=== PATIENT | female | born 1965 | race Caucasian/White ===

== ENCOUNTER 2018-04-15 16:17 | Emergency (ER) | payer SELFPAY ==
[~2018-04-15] VITALS: Ht 160 cm; Wt 75.7 kg
[2018-04-15] MEDS ORDERED: IOHEXOL 350 MG/ML 100 ML (OMNIPAQUE 350) VIAL IV ONE (17:00)
[2018-04-15] MEDS ORDERED: NS 100 ML (IVPB) BAG IV ONE (17:00)
[2018-04-15] MEDS ORDERED: fentaNYL INJECTION 100 MCG/2 ML AMP IVP ONE (17:15)
[2018-04-15 17:26] LABS: BASOPHILS % (AUTO) 0 % (0-10); EOSINOPHILS # (AUTO) 0.1 10^3/uL (0.0-0.3); EOSINOPHILS % (AUTO) 2 % (0-10); HEMATOCRIT 39 % (35-52); HEMOGLOBIN 13.3 G/DL (11.5-16.0); LYMPHOCYTES # (AUTO) 2.8 X 10^3 (1.0-4.0); LYMPHOCYTES % (AUTO) 51 % (12-44); MEAN CORPUSCULAR HEMOGLOBIN 30 PG (25-34); MEAN CORPUSCULAR HGB CONC 34 G/DL (32-36); MEAN CORPUSCULAR VOLUME 87 FL (80-99); MEAN PLATELET VOLUME 10.7 FL (7.4-10.4); MONOCYTES # (AUTO) 0.3 X 10^3 (0.0-1.0); MONOCYTES % (AUTO) 6 % (0-12); NEUTROPHILS # (AUTO) 2.3 X 10^3 (1.8-7.8); NEUTROPHILS % (AUTO) 41 % (42-75); PLATELET COUNT 298 10^3/uL (130-400); RED BLOOD COUNT 4.49 10^6/uL (4.35-5.85); RED CELL DISTRIBUTION WIDTH 12.8 % (10.0-14.5); WHITE BLOOD COUNT 5.4 10^3/uL (4.3-11.0)
[2018-04-15 17:44] LABS: ALANINE AMINOTRANSFERASE 22 U/L (0-55); ALBUMIN 4.1 GM/DL (3.2-4.5); ALKALINE PHOSPHATASE 72 U/L (40-136); BILIRUBIN,TOTAL 0.7 MG/DL (0.1-1.0); BUN/CREATININE RATIO 15; CALCIUM 9.5 MG/DL (8.5-10.1); CARBON DIOXIDE 25 MMOL/L (21-32); CHLORIDE 106 MMOL/L (98-107); CREATININE SERUM 0.68 MG/DL (0.60-1.30); GFR ESTIMATED > 60; GLUCOSE 149 MG/DL (70-105); POTASSIUM 4.1 MMOL/L (3.6-5.0); SODIUM 141 MMOL/L (135-145); TOTAL PROTEIN 7.6 GM/DL (6.4-8.2)
--- NOTE | 2018-04-15 18:22 | Diagnostic Imaging Report ---
PROCEDURE: CT head without contrast. TECHNIQUE: Multiple contiguous axial images were obtained through the brain without the use of intravenous contrast. INDICATION: Stroke. Poor historian. Altered mental status. FINDINGS: Noncontrasted images show no evidence of intracranial hemorrhage. The ventricles and cortical gyral pattern are normal. There is no extra-axial fluid collection. Basal cisterns are clear. Mastoid air cells are well aerated and clear. Paranasal sinuses are clear where visualized. There is no calvarial fracture. IMPRESSION: Negative CT head without contrast. Dictated by: Dictated on workstation # [id number]
--- NOTE | 2018-04-15 18:49 | Diagnostic Imaging Report ---
PROCEDURE: CT neck soft tissue with contrast. TECHNIQUE: Multiple contiguous axial images were obtained through the neck after the administration of contrast. INDICATION: Posterior neck pain. FINDINGS: The area of interest was not localized. There are several scattered non-pathologically enlarged bilateral cervical lymph nodes present. These include some posterior lymph nodes. Definitive pathologically enlarged lymphadenopathy does not appear to be present. The nasopharynx is not completely included. Oropharynx is unremarkable. Tonsillar fossa is slightly prominent but otherwise unremarkable. Valleculae, vocal cords, and subglottic airway are unremarkable. Thyroid gland, bilateral submandibular and parotid glands appearing unremarkable. Parapharyngeal fat planes are preserved. Carotid sheath contents are unremarkable. Cervical spinal alignment is appearing relatively anatomic. No definitive abnormal posterior soft tissue mass lesion. Lung apices are unremarkable. Visualized paranasal sinuses overall are clear. Patient is edentulous. IMPRESSION: Prominent in number scattered bilateral cervical lymph nodes. Otherwise, relatively unremarkable CT examination of the soft tissue neck. Dictated by: Dictated on workstation # [id number]
[2018-04-15 19:28] VITALS: BP 195/74
[2018-04-15] MEDS ORDERED: predniSONE 20 MG TAB PO ONE (20:45)
[2018-04-15] MEDS ORDERED: ACYCLOVIR 400 MG TABLET (ZOVIRAX) PO ONE (20:45)
[2018-04-15] MEDS ORDERED: AMOXICILLIN 500 MG (POLYMOX) CAP PO ONE (20:45)
--- NOTE | 2018-04-15 20:46 | ED Neurological Problem ---
General Chief Complaint: Facial Problems Stated Complaint: POSS STROKE Nursing Triage Note: PT ENGLISH SPEAKING, INTERPRETOR LINE USED, PT CO OF R SIDED FACIAL PAIN 8/ 10AND R SIDE OF MOUTH DRAWING, STATES STARTED SUNDAY UPON AWAKENING AND IS WORSENING. PT CO OF CHAMBERS. PT HAS 2 DAUGHTERS W HER AT THIS X. NEITHER SPEAK LATVIAN Nursing Sepsis Screen: No Definite Risk Source: patient, java lead architect Exam Limitations: language barrier History of Present Illness Date Seen by Provider: Apr 15, 2018 Time Seen by Provider: 16:35 Initial Comments This 53-year-old woman presents to the emergency room with complaints of right facial pain extending from the mastoid area around toward the eye and jaw. She also has right-sided facial weakness. The patient is Irish-speaking and the language line was used for java lead architect services. She denies any weakness or or paresthesia of any other part of her body. Her pain is fairly intense rated as 8/10. She is notably hypertensive. She denies any history of hypertension and it is presumed her hypertension is related to pain. She denies any other recent illness. Symptoms seem to affect the muscles of the eyelids and the forehead. She denies any vision change. Allergies and Home Medications Allergies Coded Allergies: No Allergy Information Available (Unverified , 04/15/18) Home Medications Acyclovir 400 Mg Tablet, 400 MG PO UD Prescribed by: DEBORAH LEONG on 04/15/182052 Amoxicillin 500 Mg Tablet, 1,000 MG PO BID Prescribed by: DEBORAH LEONG on 04/15/182052 Prednisone 20 Mg Tab, 60 MG PO DAILY Prescribed by: DEBORAH LEONG on 04/15/182052 Patient Home Medication List Home Medication List Reviewed: Yes Review of Systems Constitutional: no symptoms reported Eyes: See HPI Ears, Nose, Mouth, Throat: see HPI Respiratory: no symptoms reported Cardiovascular: no symptoms reported Gastrointestinal: no symptoms reported Genitourinary: no symptoms reported : No Musculoskeletal: no symptoms reported Skin: no symptoms reported Psychiatric/Neurological: See HPI Endocrine: No Symptoms Reported Hematologic/Lymphatic: No Symptoms Reported Past Nobugkq-Qeybnc-Iqgbex Hx Past Med/Social Hx: Reviewed Nursing Past Med/Soc Hx Patient Social History Alcohol Use: Denies Use Recreational Drug Use: No Smoking Status: Never a Smoker Recent Foreign Travel: No Contact w/Someone Who Travel: No Recent Infectious Disease Expo: No Recent Hopitalizations: No Physical Abuse: No Sexual Abuse: No Seasonal Allergies Seasonal Allergies: No Past Medical History Surgeries: No Respiratory: No Cardiac: No Neurological: No : No Genitourinary: No Gastrointestinal: No Musculoskeletal: No Endocrine: No HEENT: No Cancer: No Psychosocial: No Nursing Suicide Risk Score: 0 Integumentary: No Blood Disorders: No Physical Exam Vital Signs Vital Signs - First Documented 04/15/18 16:20 Temp 97.5 Pulse 74 Resp 16 B/P (MAP) 195/74 (114) Pulse Ox 99 Capillary Refill : Less Than 3 Seconds General Appearance: WD/WN, no apparent distress HEENT: PERRL/EOMI, other (there is right sided facial weakness and droop. The right forehead and eyelids are also affected. There is cerumen impaction in both ears, more extensively on the right. Mastoid on the right is mildly tender.) Neck: supple, normal inspection, tender lateral (in the area of the anterior cervical nodes on the right) Respiratory: lungs clear, normal breath sounds, no respiratory distress, no accessory muscle use Cardiovascular: regular rate, rhythm, no edema, no murmur Gastrointestinal: normal bowel sounds, non tender, soft Extremities: normal inspection, no pedal edema Neurologic/Psychiatric: no motor/sensory deficits, alert, normal mood/affect, oriented x 3, facial droop Crainal Nerves: normal hearing, normal speech, PERRL, facial droop (right side) , facial weakness (right side), other (weakness affects the mouth, eye, and forehead on the right) Coordination/Gait: normal finger to nose, normal gait Motor/Sensory: no motor deficit, no sensory deficit Skin: normal color, warm/dry Progress/Results/Core Measures Results/Orders Lab Results Laboratory Tests Test 04/15/18 17:22 Range/Units White Blood Count 5.4 4.3-11.0 10^3/uL Red Blood Count 4.49 4.35-5.85 10^6/uL Hemoglobin 13.3 11.5-16.0 G/DL Hematocrit 39 35-52 % Mean Corpuscular Volume 87 80-99 FL Mean Corpuscular Hemoglobin 30 25-34 PG Mean Corpuscular Hemoglobin Concent 34 32-36 G/DL Red Cell Distribution Width 12.8 10.0-14.5 % Platelet Count 298 130-400 10^3/uL Mean Platelet Volume 10.7 H 7.4-10.4 FL Neutrophils (%) (Auto) 41 L 42-75 % Lymphocytes (%) (Auto) 51 H 12-44 % Monocytes (%) (Auto) 6 0-12 % Eosinophils (%) (Auto) 2 0-10 % Basophils (%) (Auto) 0 0-10 % Neutrophils # (Auto) 2.3 1.8-7.8 X 10^3 Lymphocytes # (Auto) 2.8 1.0-4.0 X 10^3 Monocytes # (Auto) 0.3 0.0-1.0 X 10^3 Eosinophils # (Auto) 0.1 0.0-0.3 10^3/uL Basophils # (Auto) 0.0 0.0-0.1 10^3/uL Sodium Level 141 135-145 MMOL/L Potassium Level 4.1 3.6-5.0 MMOL/L Chloride Level 106 98-107 MMOL/L Carbon Dioxide Level 25 21-32 MMOL/L Anion Gap 10 5-14 MMOL/L Blood Urea Nitrogen 10 7-18 MG/DL Creatinine 0.68 0.60-1.30 MG/DL Estimat Glomerular Filtration Rate > 60 BUN/Creatinine Ratio 15 Glucose Level 149 H 70-105 MG/DL Calcium Level 9.5 8.5-10.1 MG/DL Total Bilirubin 0.7 0.1-1.0 MG/DL Aspartate Amino Transf (AST/SGOT) 21 5-34 U/L Alanine Aminotransferase (ALT/SGPT) 22 0-55 U/L Alkaline Phosphatase 72 40-136 U/L Total Protein 7.6 6.4-8.2 GM/DL Albumin 4.1 3.2-4.5 GM/DL TSH [place] Testing 4.80 0.35-4.94 UIU/ML My Orders Orders - DEBORAH ZAMORA MD Cbc With Automated Diff (04/15/18 16:47) Comprehensive Metabolic Panel (04/15/18 16:47) Thyroid Analyzer (04/15/18 16:47) Saline Lock/Iv-Start (04/15/18 16:47) Monitor-Rhythm Ecg Trace Only (04/15/18 16:47) Ct Head Wo (04/15/18 16:47) Ct Neck (Soft Tissue) W (04/15/18 16:47) Iohexol Injection (Omnipaque 350 Mg/Ml 1 (04/15/18 17:00) Ns (Ivpb) (Sodium Chloride 0.9% Ivpb Bag (04/15/18 17:00) Fentanyl Injection (Sublimaze Injection (04/15/18 17:15) Prednisone Tablet (Deltasone Tablet) (04/15/18 20:45) Acyclovir Capsule/Tablet (Zovirax Caps (04/15/18 20:45) Amoxicillin Capsule (Polymox Capsule) (04/15/18 20:45) Medications Given in ED Current Medications Medications Dose Ordered Sig/[place] Route Start Time Stop Time Status Last Admin Dose Admin Acyclovir 400 mg ONCE ONCE PO 04/15/18 20:45 04/15/18 20:46 DC 04/15/18 21:28 400 MG Amoxicillin 1,000 mg ONCE ONCE PO 04/15/18 20:45 04/15/18 20:46 DC 04/15/18 21:28 1,000 MG Prednisone 60 mg ONCE ONCE PO 04/15/18 20:45 04/15/18 20:46 DC 04/15/18 21:28 60 MG Vital Signs/I&O 04/15/18 04/15/18 16:20 19:28 Temp 97.5 97.5 Pulse 74 74 Resp 16 16 B/P (MAP) 195/74 (114) 195/74 (114) Pulse Ox 99 99 Blood Pressure Mean: 114 Progress Progress Note : Progress Note Patient's presentation seemed consistent with Kline's palsy given the history and exam. However, patient had unusual pain for Kline's palsy. For this reason further workup was pursued. CT of the head and neck was obtained. Labs were pursued. Patient had a lymphocytic predominance on her WBC suggesting viral illness. However, tympanic membranes could not be seen due to cerumen impaction. Therefore amoxicillin was given in addition to treatment of the Kline 's palsy with prednisone and acyclovir. Patient was treated with fentanyl for pain. This improved her blood pressure is well. Extensive amount of time was spent with this patient in conversation via the language line. At least 30 minutes was spent with the patient obtaining history, providing consultation, and reviewing discharge instructions. Diagnostic Imaging Diagonstic Imaging: CT Plain Films/CT/US/NM/MRI: other Comments CT soft tissues neck viewed by me and report reviewed. See report below: NAME: JESSI PEREZ MED REC#: [id number] PT STATUS: REG ER : 1965 PHYSICIAN: DEBORAH ZAMORA MD ADMIT DATE: 04/15/18/ER Signed Date of Exam: 04/15/18 CT NECK (SOFT TISSUE) W PROCEDURE: CT neck soft tissue with contrast. TECHNIQUE: Multiple contiguous axial images were obtained through the neck after the administration of contrast. INDICATION: Posterior neck pain. FINDINGS: The area of interest was not localized. There are several scattered non-pathologically enlarged bilateral cervical lymph nodes present. These include some posterior lymph nodes. Definitive pathologically enlarged lymphadenopathy does not appear to be present. The nasopharynx is not completely included. Oropharynx is unremarkable. Tonsillar fossa is slightly prominent but otherwise unremarkable. Valleculae, vocal cords, and subglottic airway are unremarkable. Thyroid gland, bilateral submandibular and parotid glands appearing unremarkable. Parapharyngeal fat planes are preserved. Carotid sheath contents are unremarkable. Cervical spinal alignment is appearing relatively anatomic. No definitive abnormal posterior soft tissue mass lesion. Lung apices are unremarkable. Visualized paranasal sinuses overall are clear. Patient is edentulous. IMPRESSION: Prominent in number scattered bilateral cervical lymph nodes. Otherwise, relatively unremarkable CT examination of the soft tissue neck. Dictated by: Dictated on workstation # [id number] Dict: 04/15/188 Trans: 04/15/181929 Interpreted by: ARA MCCANN DO Electronically signed by: ARA MCCANN DO 04/15/181929 Diagonstic Imaging: CT Plain Films/CT/US/NM/MRI: head Comments CT head viewed by me and report reviewed. See report below: NAME: JESSI PEREZ MED REC#: [id number] PT STATUS: REG ER : 1965 PHYSICIAN: DEBORAH ZAMORA MD ADMIT DATE: 04/15/18/ER Signed Date of Exam: 04/15/18 CT HEAD WO PROCEDURE: CT head without contrast. TECHNIQUE: Multiple contiguous axial images were obtained through the brain without the use of intravenous contrast. INDICATION: Stroke. Poor historian. Altered mental status. FINDINGS: Noncontrasted images show no evidence of intracranial hemorrhage. The ventricles and cortical gyral pattern are normal. There is no extra-axial fluid collection. Basal cisterns are clear. Mastoid air cells are well aerated and clear. Paranasal sinuses are clear where visualized. There is no calvarial fracture. IMPRESSION: Negative CT head without contrast. Dictated by: Dictated on workstation # [id number] Dict: 04/15/187 Trans: 04/15/182202 Interpreted by: JIN BASSETT MD Electronically signed by: JIN BASSETT MD 04/15/182202 Departure Impression Primary Impression: Kline's palsy Additional Impressions: Right sided facial pain Cerumen impaction Qualified Codes: H61.23 - Impacted cerumen, bilateral Disposition: 01 HOME, SELF-CARE Condition: Improved Departure-Patient Inst. Decision time for Depature: 20:00 Patient Instructions: Kline's Palsy, Ear Wax Impaction Add. Discharge Instructions: Complete your medications as prescribed. Take with food or milk to avoid stomach irritation. For headache take ibuprofen up to 600 mg every 6 hours as needed and/or Tylenol (acetaminophen) up to 1000 mg every 6 hours as needed. Follow-up with the [facility] as soon as possible. Call tomorrow to make an appointment. If your eye does not want to shut completely, tape it shut while you are asleep to prevent injury. Wear sunglasses or other protective eyewear when in cori, windy, or dirty environments to protect your eye. Return to the emergency room if you have worsening symptoms. Eat and drink very carefully as the numbness of your mouth may make you prone to injury, especially with hot food and drinks. For your ear wax impaction use an [id number] earwax removal product such as Debrox. Avoid pressing the Q-tips into the ear canal as this may push wax deeper into the ear. All discharge instructions reviewed with patient and/or family. Voiced understanding. Scripts Amoxicillin (Amoxicillin) 500 Mg Tablet 1000 MG PO BID, #40 TAB Prov: DEBORAH ZAMORA MD 04/15/18 Acyclovir (Acyclovir) 400 Mg Tablet 400 MG PO UD, #35 TAB Prov: DEBORAH ZAMORA MD 04/15/18 Prednisone (Prednisone) 20 Mg Tab 60 MG PO DAILY, #18 TAB Prov: DEBORAH ZAMORA MD 04/15/18 Copy Copies To 1: BRYN CASTRO MD, JOSHUA T MD Apr 15, 2018 20:46
[2018-04-15] MEDS ORDERED: ACYC400T PO (20:53)
[2018-04-15] MEDS ORDERED: PRD20T PO (20:53)
[2018-04-15] MEDS ORDERED: AMOX500T2 PO (20:53)
== END 2018-04-15 19:28 | disposition home or self-care (01) ==
LOC: ER 16:21
DX: G51.0 Bell's palsy (principal); H61.23 Impacted cerumen, bilateral; Z79.52 Long term (current) use of systemic steroids
CPT/HCPCS: 36415; 70450; 70491; 80053; 84443; 85025; 93041; 96374